=== PATIENT | male | born 1960 | race Hispanic/Latino ===

== ENCOUNTER → 2019-04-07 | Outpatient (CLI) | payer OTHER ==
--- NOTE | 2019-04-07 10:41 | REP ---
LEFT HAND SERIES: Four views. HISTORY: Hand pain. FINDINGS: Four views of the left hand show extensive vascular calcification in the distal forearm. Overall mineralization pattern is normal. There is osteoarthritic spurring mild in degree at the first carpal metacarpal articulation. There is old post-traumatic deformity in the IP joint of the thumb. No acute fracture is seen. There is dystrophic soft-tissue calcification adjacent to the ulnar styloid. Subcortical cyst formation is seen in the distal aspect of the 5th metacarpal. 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 Vascular calcification. No acute bony abnormality. Electronically Signed by Pedro Jean MD 04/07/2019 03:06 P
== END ==
LOC: M RAD 08:54
PROVIDERS: ATTEND Surgery
DX: M19.042 Primary osteoarthritis, left hand (principal); M20.092 Other deformity of left finger(s); I70.208 Unspecified atherosclerosis of native arteries of extremities, other extremity